=== PATIENT | female | born 1990 | race African-American/Black ===

== ENCOUNTER 2020-10-28 08:56 | Outpatient (REF) | payer OTHER, SELFPAY ==
[2020-10-28 09:28] LABS: COVID-19 Test Negative (Negative)
== END 2020-10-28 08:57 | disposition home or self-care (01) ==
LOC: HO.EMPCOV 08:56
PROVIDERS: Visit Provider Internal Medicine
DX: Z20.828 Contact with and (suspected) exposure to other viral communicable diseases (principal)
CPT/HCPCS: 87635; C9803

== ENCOUNTER 2020-11-27 08:38 | Outpatient (REF) | payer OTHER, SELFPAY ==
[2020-11-27 08:54] LABS: COVID-19 Test Negative (Negative)
== END 2020-11-27 08:39 | disposition home or self-care (01) ==
LOC: HO.EMPCOV 08:38
PROVIDERS: Visit Provider Internal Medicine
DX: Z20.828 Contact with and (suspected) exposure to other viral communicable diseases (principal)
CPT/HCPCS: 87635; C9803

== ENCOUNTER 2021-02-16 10:37 | Outpatient (REF) | payer OTHER, SELFPAY ==
[2021-02-16 10:53] LABS: COVID-19 Test Positive (Negative)
== END 2021-02-16 10:38 | disposition home or self-care (01) ==
LOC: HO.LAB 10:37
PROVIDERS: Visit Provider Internal Medicine
DX: Z20.822 Contact with and (suspected) exposure to COVID-19 (principal)
CPT/HCPCS: 36415; 87635; C9803

== ENCOUNTER 2021-03-17 08:57 | Outpatient (REF) | payer OTHER, SELFPAY ==
[2021-03-17 09:30] LABS: COVID-19 Test Negative (Negative); IDNOW Serial# 55D5AD1C
== END 2021-03-17 08:58 | disposition home or self-care (01) ==
LOC: HO.EMPCOV 08:57
PROVIDERS: Visit Provider Internal Medicine
DX: Z20.822 Contact with and (suspected) exposure to COVID-19 (principal)
CPT/HCPCS: 36415; 87635; C9803